=== PATIENT | male | born 1975 | race Caucasian/White ===

== ENCOUNTER 2020-10-30 13:54 | Emergency (ER) | payer BC ==
--- NOTE | 2020-10-30 15:05 | EDM.PDOC ---
ED HPI GENERAL MEDICAL PROBLEM - General Chief Complaint: Allergic Reaction Stated Complaint: rash on face Time Seen by Provider: 10/30/20 14:15 Source of Information: Reports: Patient History Limitations: Reports: No Limitations - History of Present Illness INITIAL COMMENTS - FREE TEXT/NARRATIVE: pt presents to the ER accompanied by . pt states he started treatment for dental abscess approx 4-5 days ago and no improvements on amoxicillin, returned to see provider yesterday and was started on clindamycin. pt states he noticed this morning worsening swelling of his left face and around his left eye with some slight redness. also states his left maxillary sinus is quite tender to touch, this is worsened and spreading from original gumline and tenderness of left upper canine tenderness. pt denies fever, chills, one episode of vomiting associated with vicodin ingestion last night on an empty stomach. denies visual changes, left eye pain. 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 ED EXAM GENERAL NO PERIP PULSE - Physical Exam Exam: See Below Exam Limited By: No Limitations General Appearance: Alert, WD/WN, No Apparent Distress Eye Exam: Left Eye: Periorbital Changes (edema), Bilateral Eye: EOMI, PERRL Nose: Normal Inspection, Normal Mucosa Throat/Mouth: Normal Inspection, Normal Lips, Normal Teeth, Normal Oropharynx, Normal Voice, No Airway Compromise, Other (tenderness and swelling to left upper gumline) Head: Facial Swelling (left side), Facial Tenderness (left side), Sinus Tenderness (left maxillary) Respiratory/Chest: No Respiratory Distress, Normal Breath Sounds Cardiovascular: Normal Peripheral Pulses, Regular Rate, Rhythm, No Edema Neurological: Alert, Oriented, CN II-XII Intact, Normal Cognition, Normal Gait Skin Exam: Warm, Dry, Intact Course - Vital Signs Last Recorded V/S: Last Vital Signs Temp 98.6 F 10/30/20 14:04 Pulse 90 10/30/20 14:04 Resp 20 10/30/20 14:04 BP 155/101 H 10/30/20 14:04 Pulse Ox - Orders/Labs/Meds Orders: Active Orders 24 hr Category Date Time Status Max Facial Sinus w Cont [CT] Stat Exams 10/30/20 14:31 Ordered CBC WITH AUTO DIFF [HEME] Stat Lab 10/30/20 14:31 Ordered COMPREHENSIVE METABOLIC PN,CMP [CHEM] Stat Lab 10/30/20 14:31 Ordered - Radiology Interpretation Free Text/Narrative:: ct of face and orbits show mucosal wall thickening in left maxillary sinus. no fractures, no left side facial bone irregularities noted. Departure - Departure Time of Disposition: 16:25 Disposition: Home, Self-Care 01 Clinical Impression: Preseptal cellulitis of left eye, Dental abscess - Discharge Information *PRESCRIPTION DRUG MONITORING PROGRAM REVIEWED*: Not Applicable *COPY OF PRESCRIPTION DRUG MONITORING REPORT IN PATIENT [facility]: Not Applicable Care Plan Goals: ibuprofen 600mg qid continue clinda restart amoxicillin cold packs on your face will help with swelling. monitor for worsening symptoms. improvements are expected in another 24hr or so. Sepsis Event Note (ED) - Evaluation Sepsis Screening Result: No Definite Risk - Focused Exam Vital Signs: Vital Signs Temp Pulse Resp BP 10/30/20 14:04 98.6 F 90 20 155/101 H - Problem List & Annotations (1) Dental abscess SNOMED Code(s): 043463608 Code(s): K04.7 - PERIAPICAL ABSCESS WITHOUT SINUS Status: Acute (2) Preseptal cellulitis of left eye SNOMED Code(s): 394598373 Code(s): L03.213 - PERIORBITAL CELLULITIS Status: Acute - Problem List Review Problem List Initiated/Reviewed/Updated: Yes - My Orders Last 24 Hours: My Active Orders 10/30/20 14:31 Max Facial Sinus w Cont [CT] Stat CBC WITH AUTO DIFF [HEME] Stat COMPREHENSIVE METABOLIC PN,CMP [CHEM] Stat - Assessment/Plan Last 24 Hours: My Active Orders 10/30/20 14:31 Max Facial Sinus w Cont [CT] Stat CBC WITH AUTO DIFF [HEME] Stat COMPREHENSIVE METABOLIC PN,CMP [CHEM] Stat Assessment:: dental abscess preseptal cellulitis plan: restart amoxicillin continue clindamycin ibuprofen 600mg qid cold packs to face monitor for worsening symptoms: eye pain, inability to move left eye or bulging left eye. return to ER for this.
[2020-10-30] MEDS: Iopamidol 612 MG/ML 100 ML Bottle IV SCH (15:34)
[2020-10-30] MEDS: Sodium Chloride 0.9% 50 ML SDV FLUSH ONE (15:35)
--- NOTE | 2020-10-31 08:16 | CT ---
Date of Service: 10/30/20 Clinical Data: Preseptal cellulitis vs orbital vs osteo. ENHANCED FACIAL CT: Multislice axial acquisition with IV contrast was performed. Axial images and sagittal and coronal reformations are reviewed. There is significant beam hardening and streak artifact produced by the patient's metallic dental work obscuring adjacent structures. There is mucosal thickening in the left maxillary sinus consistent with chronic sinusitis. There is also very minimal mucosal thickening in the left frontal sinus. The remaining sinuses are clear. No air-fluid levels. There is deviation of the nasal septum to the right. There is mild soft tissue swelling of the middle and inferior nasal turbinates. The globes and orbital contents appear normal. The parotid glands are symmetric and appear normal. The submandibular glands are fractionally visualized. They appear normal. There is mild subcutaneous fat stranding and edema adjacent to the left maxilla and left mandible. There is a 2 mm gas collection with adjacent fat stranding and minimal fluid located anterior to the left lateral incisor. This may be related to the patient's dental work. I cannot exclude a small abscess. There is also a focal lucency within the maxilla adjacent to the left lateral maxillary incisor. This may be also related to the patient's dental work. I cannot exclude a small dental abscess. No other significant findings. There are nonspecific deep cervical nodes. They are not enlarged. The pharynx, larynx, and visualized airway appear unremarkable. [id number] [facility]
== END 2020-10-30 16:07 | disposition home or self-care (01) ==
LOC: LB.ED 13:54
DX: L03.213 Periorbital cellulitis (principal); K04.7 Periapical abscess without sinus; Z79.899 Other long term (current) drug therapy
CPT/HCPCS: 36415; 70487; 80053; 85025; 99284; Q9967